=== PATIENT | female | born 1940 | race Caucasian/White ===

== ENCOUNTER 2022-11-24 09:53 | Inpatient (IN) ==
[2022-11-24] MEDS ORDERED: Iodixanol (CONTRAST) 320 MG/ML 100 ML SDV IV ONE (10:09)
[2022-11-24 10:20] LABS: ABS Lymphocytes 1.2 10^3/ul (1.0-4.8); ABS Monocytes 1.8 10^3/ul (0-0.8); ABS Neutrophils 16.9 10^3/ul (1.5-7.7); Hematocrit 39 % (35-47); Mean Corpuscular HGB Conc 33 g/dL (31-36); Mean Corpuscular Hemoglobin 35 pg (27-31); Mean Corpuscular Volume 106 fL (80-97); Mean Platelet Volume 9.4 fL (7.4-10.4); Platelet Count 179 10^3/uL (150-450); Red Blood Count 3.67 10^6 /uL (3.70-4.87); Red Cell Distribution Width 13 % (10-15); White Blood Count 19.9 10^3/uL (3.5-10.8)
[2022-11-24 10:28] LABS: Activated Partial Thrombo Time 34.1 seconds (26.0-38.0); INR 1.48 (0.88-1.18)
[2022-11-24 10:58] LABS: Albumin 3.6 g/dL (3.2-5.2); Albumin/Globulin Ratio 1.3 (1-3); Calcium 8.9 mg/dL (8.6-10.3); Globulin 2.8 g/dL (2-4); HDL Cholesterol 18.3 mg/dL; Potassium 4.2 mmol/L (3.5-5.0); Total Bilirubin 0.8 mg/dL (0.2-1.0); Total Protein 6.4 g/dL (6.4-8.9); eGFR CKD-EPI 37.7 (>60)
[2022-11-24] MEDS ORDERED: cefTRIAXone 1 gm/50 mL D5W 1 GM/50 ML BAG IV ONE (11:28)
[2022-11-24] MEDS ORDERED: Azithromycin 500 mg/250 ml NS 500 MG/250 ML BAG IVPB ONE (11:28)
[2022-11-24] MEDS ORDERED: Albuterol 2.5mg/3 ml (0.083%) NEB.SOLN INH PRN ×2 (12:38→16:35)
[2022-11-24] MEDS ORDERED: Albuterol/Ipratropium NEB.SOL (2.5/0.5 MG) 3 ML NEB.SOLN INH PRN (12:41)
[2022-11-24] MEDS ORDERED: Budesonide/Formote 80/4.5(NF) MDI INH SCH (13:00)
[2022-11-24] MEDS ORDERED: HYDROcodone/ACETAMIN 5/325 mg TAB PO PRN (13:01)
[2022-11-24 14:01] LABS: TSH Ultra Thyroid Stim Horm 0.56 mcIU/mL (0.34-5.60)
[2022-11-24] MEDS: Mometasone/Formoter 100/5 MDI INH SCH ×2 (14:39→22:46)
[2022-11-24 15:15] LABS: Urine Appearance Clear; Urine Color Yellow
[2022-11-24 15:16] LABS: Urine Bilirubin Negative (Negative); Urine Blood Negative (Negative); Urine Glucose Negative (Negative); Urine Ketones Trace (Negative); Urine Nitrite Negative (Negative); Urine Protein 1+ (30 mg/dL) (Negative); Urine Specific Gravity 1.015 (1.005-1.030); Urine Urobilinogen 0.2 (Negative) (Negative); Urine pH 5.5 (5.0-9.0)
[2022-11-24 15:23] LABS: High Sensitivity Troponin 1 Hr 296 pg/mL (<15)
[2022-11-24 15:29] LABS: Urine Bacteria Absent (Absent); Urine Red Blood Cell Absent (Absent); Urine Squamous Epithelial Cell Present (Absent); Urine White Blood Cell Trace(0-5/hpf) (Absent)
[2022-11-24] MEDS ORDERED: Albuterol/Ipratropium NEB.SOL (2.5/0.5 MG) 3 ML NEB.SOLN INH SCH (16:00)
[2022-11-24] MEDS: Nicotine PATCH 21 MG/24 HR PATCH TRANSDERM SCH (18:33)
[2022-11-24] MEDS: Heparin 5000 UNITS/ML 1 mL VIAL SUBCUT SCH (23:23)
[2022-11-25] MEDS: Latanoprost 0.005% 2.5 ml BTL BOTH EYES SCH ×2 (00:12→20:39)
[2022-11-25] MEDS: Dorzolamide/Timolol OPTH (NF) 10 ML BOT BOTH EYES SCH ×3 (00:12→20:39)
[2022-11-25 00:28] LABS: PCO2 Arterial 60 mmHg (35-45)
[2022-11-25 00:31] LABS: PO2 Arterial 53 mmHg (80-100)
[2022-11-25 03:25] LABS: PCO2 Arterial 57 mmHg (35-45); PO2 Arterial 183 mmHg (80-100)
[2022-11-25] MEDS: methylPREDNISolone SOD SUCC 125 mg 2 ML VIAL IV SCH ×3 (03:32→17:39)
[2022-11-25 04:07] LABS: ABS Lymphocytes 1.2 10^3/ul (1.0-4.8); ABS Monocytes 1.1 10^3/ul (0-0.8); ABS Neutrophils 15.8 10^3/ul (1.5-7.7); Hematocrit 34 % (35-47); Hemoglobin 11.1 g/dL (12.0-16.0); Lymphocyte % 6.5 %; Mean Corpuscular HGB Conc 33 g/dL (31-36); Mean Corpuscular Hemoglobin 34 pg (27-31); Mean Corpuscular Volume 103 fL (80-97); Mean Platelet Volume 9.4 fL (7.4-10.4); Platelet Count 174 10^3/uL (150-450); Red Blood Count 3.25 10^6 /uL (3.70-4.87); Red Cell Distribution Width 13 % (10-15); White Blood Count 18.1 10^3/uL (3.5-10.8)
[2022-11-25 04:25] LABS: Phosphorus 3.5 mg/dL (2.5-5.0); Potassium 4.5 mmol/L (3.5-5.0); eGFR CKD-EPI 47.3 (>60)
[2022-11-25] MEDS ORDERED: D5W 1000 ml BAG 1,000 ML IV SCH (05:00)
[2022-11-25] MEDS: Mometasone/Formoter 100/5 MDI INH SCH (07:30)
[2022-11-25] MEDS: Aspirin EC 81 mg TAB.EC (enteric coated) PO SCH (08:55)
[2022-11-25] MEDS: Nicotine PATCH 21 MG/24 HR PATCH TRANSDERM SCH (08:56)
[2022-11-25] MEDS: Heparin 5000 UNITS/ML 1 mL VIAL SUBCUT SCH ×2 (08:56→20:36)
[2022-11-25] MEDS ORDERED: Albuterol 2.5mg/3 ml (0.083%) NEB.SOLN INH PRN (12:23)
[2022-11-25] MEDS ORDERED: methylPREDNISolone SOD SUCC 125 mg 2 ML VIAL IV SCH (12:28)
[2022-11-25] MEDS: cefTRIAXone 1 gm/50 mL D5W 1 GM/50 ML BAG IV SCH (14:54)
[2022-11-26] MEDS: methylPREDNISolone SOD SUCC 125 mg 2 ML VIAL IV SCH ×2 (00:51→09:13)
[2022-11-26] MEDS: Mometasone/Formoter 100/5 MDI INH SCH ×2 (03:17→07:23)
[2022-11-26 04:47] LABS: ABS Lymphocytes 1.1 10^3/ul (1.0-4.8); ABS Monocytes 0.6 10^3/ul (0-0.8); ABS Neutrophils 12.2 10^3/ul (1.5-7.7); Hematocrit 36 % (35-47); Lymphocyte % 8.2 %; Mean Corpuscular HGB Conc 33 g/dL (31-36); Mean Corpuscular Hemoglobin 34 pg (27-31); Mean Corpuscular Volume 103 fL (80-97); Mean Platelet Volume 9.2 fL (7.4-10.4); Platelet Count 194 10^3/uL (150-450); Red Blood Count 3.53 10^6 /uL (3.70-4.87); Red Cell Distribution Width 13 % (10-15); White Blood Count 13.9 10^3/uL (3.5-10.8)
[2022-11-26 05:26] LABS: Calcium 8.5 mg/dL (8.6-10.3); Magnesium 2.2 mg/dL (1.9-2.7); Potassium 4.7 mmol/L (3.5-5.0); eGFR CKD-EPI 49.3 (>60)
[2022-11-26] MEDS: Aspirin EC 81 mg TAB.EC (enteric coated) PO SCH (09:12)
[2022-11-26] MEDS: Heparin 5000 UNITS/ML 1 mL VIAL SUBCUT SCH ×2 (09:13→22:50)
[2022-11-26] MEDS: Dorzolamide/Timolol OPTH (NF) 10 ML BOT BOTH EYES SCH ×2 (09:13→22:49)
[2022-11-26] MEDS: Nicotine PATCH 21 MG/24 HR PATCH TRANSDERM SCH (09:14)
[2022-11-26] MEDS: cefTRIAXone 1 gm/50 mL D5W 1 GM/50 ML BAG IV SCH (15:10)
[2022-11-26] MEDS ORDERED: methylPREDNISolone SOD SUCC 125 mg 2 ML VIAL IV SCH (21:00)
[2022-11-26] MEDS: Latanoprost 0.005% 2.5 ml BTL BOTH EYES SCH (22:48)
[2022-11-27] MEDS: Mometasone/Formoter 100/5 MDI INH SCH ×3 (00:35→19:21)
[2022-11-27] MEDS: Nicotine PATCH 21 MG/24 HR PATCH TRANSDERM SCH (08:44)
[2022-11-27] MEDS: Heparin 5000 UNITS/ML 1 mL VIAL SUBCUT SCH ×2 (08:44→21:50)
[2022-11-27] MEDS: Aspirin EC 81 mg TAB.EC (enteric coated) PO SCH (08:45)
[2022-11-27] MEDS: Dorzolamide/Timolol OPTH (NF) 10 ML BOT BOTH EYES SCH ×2 (08:46→22:04)
[2022-11-27] MEDS ORDERED: Albuterol 2.5mg/3 ml (0.083%) NEB.SOLN INH SCH (10:00)
[2022-11-27] MEDS: Albuterol 2.5mg/3 ml (0.083%) NEB.SOLN INH SCH ×3 (11:12→19:23)
[2022-11-27] MEDS: cefTRIAXone 1 gm/50 mL D5W 1 GM/50 ML BAG IV SCH (13:11)
[2022-11-27] MEDS: Latanoprost 0.005% 2.5 ml BTL BOTH EYES SCH (21:52)
[2022-11-28] MEDS: Albuterol 2.5mg/3 ml (0.083%) NEB.SOLN INH SCH ×3 (00:44→13:21)
[2022-11-28] MEDS: Mometasone/Formoter 100/5 MDI INH SCH (07:14)
[2022-11-28] MEDS: Nicotine PATCH 21 MG/24 HR PATCH TRANSDERM SCH (09:24)
[2022-11-28] MEDS: Aspirin EC 81 mg TAB.EC (enteric coated) PO SCH (09:24)
[2022-11-28] MEDS: Heparin 5000 UNITS/ML 1 mL VIAL SUBCUT SCH (09:25)
[2022-11-28] MEDS: Dorzolamide/Timolol OPTH (NF) 10 ML BOT BOTH EYES SCH (09:25)
[2022-11-28 16:32] VITALS: BP 181/96
== END 2022-11-28 17:10 | disposition home or self-care (01) | DRG 193 ==
LOC: EDHOLD 09:53 → ED 09:53 → SUATTDRO 12:28 → MEDTELE 22:00 → ICU 11-25 02:57 → SUATTDRO 11-26 08:56 → MED 11-26 20:04
PROVIDERS: ADMIT Internal Medicine; ATTEND Internal Medicine

== ENCOUNTER 2023-10-11 12:18 | Inpatient (IN) ==
[2023-10-11 12:48] LABS: ABS Basophils 0.1 10^3/uL (0.0-0.1); ABS Lymphocytes 0.9 10^3/uL (1.0-4.8); ABS Monocytes 0.8 10^3/uL (0.0-0.9); ABS Nucleated RBC 0.01 10^3/ul; Eosinophil % 0.2 %; Hematocrit 22.7 % (35-45); Hemoglobin 7.9 g/dL (11.5-14.3); Lymphocyte % 9.1 %; Mean Corpuscular Hemoglobin 33.1 pg (27-33); Mean Corpuscular Hgb Conc 34.8 g/dL (31-36); Mean Corpuscular Volume 94.9 fL (80-97); Mean Platelet Volume 9.3 fL (7.5-11.2); Nucleated Red Blood Cells % 0.1 %/100WBC (0.0-0.8); Platelet Count 232 10^3/uL (150-450); Red Blood Count 2.39 10^6/uL (3.63-4.92); Red Cell Distribution Width 14.2 % (12-17); White Blood Count 9.8 10^3/uL (3.8-11.8)
[2023-10-11 13:05] LABS: INR 1.12 (0.83-1.13)
[2023-10-11 13:17] LABS: Urine Appearance Clear; Urine Bilirubin Negative (Negative); Urine Blood Negative (Negative); Urine Color Yellow; Urine Glucose Negative (Negative); Urine Ketones Negative (Negative); Urine Nitrite Negative (Negative); Urine Protein Negative (Negative); Urine Specific Gravity 1.008 (1.002-1.030); Urine Urobilinogen Negative (Negative)
[2023-10-11] MEDS ORDERED: NS 0.9% 1000 ml BAG 1,000 ML IV ONE ×2 (13:20→14:59)
[2023-10-11 13:38] LABS: Urine Bacteria Absent (Absent); Urine Red Blood Cell Trace(0-2/hpf) (Absent); Urine White Blood Cell 1+(6-10/hpf) (Absent)
[2023-10-11 14:09] LABS: High Sensitivity Troponin 1 Hr 10 pg/mL (<15)
[2023-10-11 14:17] LABS: Albumin 3.6 g/dL (3.2-5.2); Albumin/Globulin Ratio 1.3 (1-3); Calcium 8.6 mg/dL (8.6-10.3); Creatinine, Serum 1.17 mg/dL (0.51-0.95); Globulin 2.7 g/dL (2-4); Potassium 3.8 mmol/L (3.5-5.0); Total Bilirubin 0.3 mg/dL (0.2-1.0); Total Protein 6.3 g/dL (6.4-8.9)
[2023-10-11 14:31] LABS: Alcohol, S < 13 mg/dL (<13)
[2023-10-11 14:37] LABS: Activated Partial Thrombo Time 27.8 seconds (26.0-38.0)
[2023-10-11] MEDS ORDERED: Acetaminophen IV 1 GM/100ML 1,000 MG/100 ML BAG IV ONE (14:59)
[2023-10-11] MEDS ORDERED: Atropine 0.1 MG/ML 10 ml SYR (1 mg) IV PUSH ONE (15:42)
[2023-10-11] MEDS ORDERED: fentaNYL 100 mcg/2 ml 50 MCG/ML VIAL IV SLOW PU ONE (15:55)
[2023-10-11] MEDS ORDERED: Midazolam 10 mg/10 ml VIAL 1 mg/ml 10 ml VIAL (10 mg) IV SLOW PU ONE (15:55)
[2023-10-11] MEDS ORDERED: Ondansetron 4 mg VIAL 2 MG/ML 2 ml VIAL IV PRN (17:01)
[2023-10-11] MEDS ORDERED: Iodixanol (CONTRAST) 320 MG/ML 100 ML SDV IV ONE (17:12)
[2023-10-11] MEDS ORDERED: Albuterol 2.5mg/3 ml (0.083%) NEB.SOLN INH PRN (17:44)
[2023-10-11] MEDS ORDERED: Dextran 70/Hypromellose Tears Eye Drops 15 ml BTL (for Artificials Tears) BOTH EYES PRN (17:47)
[2023-10-11] MEDS: Mometasone/Formoter 100/5 MDI INH SCH (20:35)
[2023-10-11] MEDS: Nicotine PATCH 7 MG/24 HR PATCH TRANSDERM SCH (21:28)
[2023-10-11] MEDS: Pantoprazole VIAL 40 MG VIAL IV SCH (21:28)
[2023-10-11] MEDS: Latanoprost 0.005% 2.5 ml BTL BOTH EYES SCH (21:29)
[2023-10-11 23:29] LABS: ABS Basophils 0.1 10^3/uL (0.0-0.1); ABS Lymphocytes 0.9 10^3/uL (1.0-4.8); ABS Neutrophils 7.3 10^3/uL (1.5-7.6); ABS Nucleated RBC 0.01 10^3/ul; Eosinophil % 0.3 %; Hematocrit 26.7 % (35-45); Hemoglobin 9.1 g/dL (11.5-14.3); Lymphocyte % 9.8 %; Mean Corpuscular Hemoglobin 31.6 pg (27-33); Mean Platelet Volume 9.1 fL (7.5-11.2); Nucleated Red Blood Cells % 0.1 %/100WBC (0.0-0.8); Platelet Count 203 10^3/uL (150-450); Red Blood Count 2.87 10^6/uL (3.63-4.92); Red Cell Distribution Width 14.7 % (12-17); White Blood Count 9.3 10^3/uL (3.8-11.8)
[2023-10-12 04:58] LABS: ABS Basophils 0.1 10^3/uL (0.0-0.1); ABS Lymphocytes 0.8 10^3/uL (1.0-4.8); ABS Monocytes 0.7 10^3/uL (0.0-0.9); ABS Neutrophils 7.8 10^3/uL (1.5-7.6); ABS Nucleated RBC 0.01 10^3/ul; Eosinophil % 0.2 %; Hematocrit 27.3 % (35-45); Hemoglobin 9.2 g/dL (11.5-14.3); Lymphocyte % 8.4 %; Mean Corpuscular Hemoglobin 31.5 pg (27-33); Mean Corpuscular Hgb Conc 33.7 g/dL (31-36); Mean Corpuscular Volume 93.6 fL (80-97); Mean Platelet Volume 8.8 fL (7.5-11.2); Nucleated Red Blood Cells % 0.1 %/100WBC (0.0-0.8); Platelet Count 190 10^3/uL (150-450); Red Blood Count 2.91 10^6/uL (3.63-4.92); Red Cell Distribution Width 15.1 % (12-17); White Blood Count 9.4 10^3/uL (3.8-11.8)
[2023-10-12 05:23] LABS: Calcium 7.8 mg/dL (8.6-10.3); Creatinine, Serum 0.92 mg/dL (0.51-0.95); Magnesium 1.8 mg/dL (1.9-2.7); Phosphorus 2.6 mg/dL (2.5-5.0); Potassium 3.8 mmol/L (3.5-5.0); eGFR CKD-EPI 61.4 (>60)
[2023-10-12] MEDS ORDERED: Potassium Chlor 20 meq TAB.ER PO ONE (06:58)
[2023-10-12] MEDS ORDERED: Magnesium Sulfate 2 gm BAG 2 GM/50 ML BAG IVPB ONE (06:59)
[2023-10-12] MEDS: Nicotine PATCH 7 MG/24 HR PATCH TRANSDERM SCH (07:45)
[2023-10-12] MEDS: Cholecalciferol (VIT D3) 1,000 unit TAB PO SCH (07:46)
[2023-10-12] MEDS: NON FORMULARY MED (Zinc Acetate 50 mg (zinc) Capsule) PO SCH (07:46)
[2023-10-12] MEDS: HYDROcodone/ACETAMIN 5/325 mg TAB PO PRN ×2 (07:46→20:48)
[2023-10-12] MEDS: Mometasone/Formoter 100/5 MDI INH SCH ×2 (08:02→19:03)
[2023-10-12] MEDS: Pantoprazole VIAL 40 MG VIAL IV SCH (17:48)
[2023-10-12] MEDS: Latanoprost 0.005% 2.5 ml BTL BOTH EYES SCH (20:52)
[2023-10-13 04:38] LABS: Hematocrit 31.7 % (35-45); Hemoglobin 10.5 g/dL (11.5-14.3); Mean Corpuscular Hemoglobin 31.1 pg (27-33); Mean Corpuscular Volume 94.3 fL (80-97); Mean Platelet Volume 9.4 fL (7.5-11.2); Platelet Count 229 10^3/uL (150-450); Red Blood Count 3.36 10^6/uL (3.63-4.92); Red Cell Distribution Width 15.2 % (12-17); White Blood Count 9.6 10^3/uL (3.8-11.8)
[2023-10-13 05:04] LABS: Calcium 8.8 mg/dL (8.6-10.3); Creatinine, Serum 0.92 mg/dL (0.51-0.95); Potassium 4.4 mmol/L (3.5-5.0); eGFR CKD-EPI 61.4 (>60)
[2023-10-13] MEDS: HYDROcodone/ACETAMIN 5/325 mg TAB PO PRN ×2 (05:56→14:48)
[2023-10-13] MEDS: Mometasone/Formoter 100/5 MDI INH SCH ×2 (07:58→19:48)
[2023-10-13] MEDS: Cholecalciferol (VIT D3) 1,000 unit TAB PO SCH (08:44)
[2023-10-13] MEDS: NON FORMULARY MED (Zinc Acetate 50 mg (zinc) Capsule) PO SCH (10:03)
[2023-10-13] MEDS: Nicotine PATCH 7 MG/24 HR PATCH TRANSDERM SCH (10:19)
[2023-10-13] MEDS: Pantoprazole VIAL 40 MG VIAL IV SCH (18:06)
[2023-10-13] MEDS: Latanoprost 0.005% 2.5 ml BTL BOTH EYES SCH (20:42)
[2023-10-14] MEDS ORDERED: Morphine 2 MG/ML SYRINGE IV ONE (05:04)
[2023-10-14 05:20] LABS: ABS Basophils 0.1 10^3/uL (0.0-0.1); ABS Eosinophils 0.1 10^3/uL (0.0-0.5); ABS Lymphocytes 0.9 10^3/uL (1.0-4.8); ABS Monocytes 0.8 10^3/uL (0.0-0.9); ABS Neutrophils 8.3 10^3/uL (1.5-7.6); Hematocrit 29.4 % (35-45); Hemoglobin 9.7 g/dL (11.5-14.3); Lymphocyte % 8.9 %; Mean Corpuscular Hemoglobin 31.1 pg (27-33); Mean Corpuscular Hgb Conc 33.1 g/dL (31-36); Mean Platelet Volume 8.6 fL (7.5-11.2); Platelet Count 232 10^3/uL (150-450); Red Blood Count 3.13 10^6/uL (3.63-4.92); Red Cell Distribution Width 14.6 % (12-17); White Blood Count 10.1 10^3/uL (3.8-11.8)
[2023-10-14 06:00] LABS: Albumin 3.3 g/dL (3.2-5.2); Albumin/Globulin Ratio 1.2 (1-3); Calcium 8.8 mg/dL (8.6-10.3); Creatinine, Serum 0.91 mg/dL (0.51-0.95); Globulin 2.7 g/dL (2-4); Magnesium 1.7 mg/dL (1.9-2.7); Phosphorus 3.8 mg/dL (2.5-5.0); Potassium 4.2 mmol/L (3.5-5.0); Total Bilirubin 0.3 mg/dL (0.2-1.0); eGFR CKD-EPI 62.2 (>60)
[2023-10-14] MEDS ORDERED: Magnesium Sulfate 2 gm BAG 2 GM/50 ML BAG IVPB ONE (06:06)
[2023-10-14] MEDS: Mometasone/Formoter 100/5 MDI INH SCH ×2 (07:59→19:51)
[2023-10-14] MEDS ORDERED: fentaNYL 100 mcg/2 ml 50 MCG/ML VIAL IV SLOW PU ONE (08:00)
[2023-10-14] MEDS ORDERED: Midazolam 10 mg/10 ml VIAL 1 mg/ml 10 ml VIAL (10 mg) IV SLOW PU ONE (08:00)
[2023-10-14] MEDS ORDERED: ceFAZolin SYR FLUSH 1 GM/10 ML for pocket flush (cardiology) FLUSH ONE (08:00)
[2023-10-14] MEDS ORDERED: Lidocaine 1% VIAL 10 MG/ML 30 ML VIAL ONE (10:34)
[2023-10-14] MEDS ORDERED: fentaNYL 100 mcg/2 ml 50 MCG/ML VIAL ONE (10:34)
[2023-10-14] MEDS ORDERED: Midazolam 5 mg/5 ml VIAL 1 mg/ml 5 ml VIAL (5 mg) ONE (10:34)
[2023-10-14] MEDS: ceFAZolin 2 GM in NS PREMIX 2 GM/100 ML BAG IVPB ONE ×2 (10:53→11:58)
[2023-10-14 11:19] LABS: Ferritin 10.1 ng/mL (11-307)
[2023-10-14 11:39] LABS: % Iron Saturation 6 % (15-55); .Transferrin 250 mg/dL (203-362); Iron < 20 ug/dL (50-212); Total Iron Binding Capacity 350 mcg/dL (250-450); Unsaturated Iron Binding 330 ug/dL
[2023-10-14] MEDS ORDERED: Metoprolol Tartrate 5 mg VIAL 5 ml VIAL (1 mg/ml) ONE (11:40)
[2023-10-14] MEDS: NON FORMULARY MED (Zinc Acetate 50 mg (zinc) Capsule) PO SCH (11:56)
[2023-10-14] MEDS: Nicotine PATCH 7 MG/24 HR PATCH TRANSDERM SCH (13:03)
[2023-10-14] MEDS: Cholecalciferol (VIT D3) 1,000 unit TAB PO SCH (13:03)
[2023-10-14] MEDS: ceFAZolin VIAL 1 GM in NS 0.9% 50 ML 50 ML IVPB SCH (18:14)
[2023-10-14] MEDS: Pantoprazole VIAL 40 MG VIAL IV SCH (18:18)
[2023-10-14] MEDS: Latanoprost 0.005% 2.5 ml BTL BOTH EYES SCH (20:39)
[2023-10-14] MEDS: Dorzolamide/Timolol OPTH (NF) 10 ML BOT BOTH EYES SCH (20:39)
[2023-10-14] MEDS: HYDROcodone/ACETAMIN 5/325 mg TAB PO PRN (22:05)
[2023-10-15] MEDS: ceFAZolin VIAL 1 GM in NS 0.9% 50 ML 50 ML IVPB SCH ×2 (01:42→11:53)
[2023-10-15 05:02] LABS: Hemoglobin 9.4 g/dL (11.5-14.3); Mean Corpuscular Hemoglobin 31.5 pg (27-33); Mean Corpuscular Hgb Conc 33.7 g/dL (31-36); Mean Corpuscular Volume 93.5 fL (80-97); Mean Platelet Volume 8.9 fL (7.5-11.2); Platelet Count 214 10^3/uL (150-450); Red Cell Distribution Width 14.6 % (12-17); White Blood Count 10.4 10^3/uL (3.8-11.8)
[2023-10-15 05:42] LABS: Calcium 8.4 mg/dL (8.6-10.3); Creatinine, Serum 1.02 mg/dL (0.51-0.95); Potassium 4.2 mmol/L (3.5-5.0); eGFR CKD-EPI 54.2 (>60)
[2023-10-15] MEDS: Mometasone/Formoter 100/5 MDI INH SCH ×2 (07:42→19:29)
[2023-10-15] MEDS: Cholecalciferol (VIT D3) 1,000 unit TAB PO SCH (09:40)
[2023-10-15] MEDS: Dorzolamide/Timolol OPTH (NF) 10 ML BOT BOTH EYES SCH ×3 (09:41→19:27)
[2023-10-15] MEDS ORDERED: Midazolam 10 mg/10 ml VIAL 1 mg/ml 10 ml VIAL (10 mg) ONE (09:53)
[2023-10-15] MEDS ORDERED: fentaNYL 100 mcg/2 ml 50 MCG/ML VIAL ONE (09:53)
[2023-10-15] MEDS: Nicotine PATCH 7 MG/24 HR PATCH TRANSDERM SCH (10:25)
[2023-10-15] MEDS: NON FORMULARY MED (Zinc Acetate 50 mg (zinc) Capsule) PO SCH (11:37)
[2023-10-15] MEDS ORDERED: Acetaminophen IV 1 GM/100ML 1,000 MG/100 ML BAG IV ONE (11:40)
[2023-10-15] MEDS ORDERED: Acetaminophen IV 1 GM/100ML 0 MG/0 ML BAG IV ONE (11:45)
[2023-10-15] MEDS: HYDROcodone/ACETAMIN 5/325 mg TAB PO PRN ×2 (11:56→19:58)
[2023-10-15] MEDS: Pantoprazole VIAL 40 MG VIAL IV SCH (19:58)
[2023-10-15] MEDS: Latanoprost 0.005% 2.5 ml BTL BOTH EYES SCH (19:59)
[2023-10-16] MEDS ORDERED: Acetaminophen IV 1 GM/100ML 1,000 MG/100 ML BAG IV ONE ×2 (05:20→08:20)
[2023-10-16 05:51] LABS: Calcium 8.6 mg/dL (8.6-10.3); Creatinine, Serum 0.78 mg/dL (0.51-0.95); Magnesium 1.8 mg/dL (1.9-2.7); Potassium 4.2 mmol/L (3.5-5.0); eGFR CKD-EPI 74.8 (>60)
[2023-10-16] MEDS ORDERED: Magnesium Sulfate IV 1GM/100ML 1 GM/100 ML BAG IV ONE (06:34)
[2023-10-16] MEDS ORDERED: Magnesium Sulfate 2 gm BAG 2 GM/50 ML BAG IVPB ONE (07:46)
[2023-10-16] MEDS: Mometasone/Formoter 100/5 MDI INH SCH ×2 (08:06→19:49)
[2023-10-16] MEDS ORDERED: fentaNYL 100 mcg/2 ml 50 MCG/ML VIAL ONE (08:41)
[2023-10-16] MEDS ORDERED: VERAPAMIL 2.5 MG/ML 2 ML VIAL ** 5 mg/2 ml ONE (08:41)
[2023-10-16] MEDS ORDERED: Heparin 1,000 UNIT/ML 10 ml (10,000 UNITS) CATHLAB/DIALYSIS ONE (08:41)
[2023-10-16] MEDS ORDERED: Midazolam 5 mg/5 ml VIAL 1 mg/ml 5 ml VIAL (5 mg) ONE (08:41)
[2023-10-16] MEDS ORDERED: Heparin 2 UNITS/ML 1000 mls 2,000 ML IV ONE (08:42)
[2023-10-16] MEDS ORDERED: Lidocaine 1% MPF 5 ML VIAL ONE (08:42)
[2023-10-16] MEDS ORDERED: Iohexol 350 (CONTRAST) 200 ML MDV IV ONE (08:42)
[2023-10-16] MEDS ORDERED: Iohexol 350 (CONTRAST) 100 ML PAK IV ONE (08:43)
[2023-10-16] MEDS ORDERED: nitroGLYCERIN DRIP (PHA MIX) 25,000 MCG/250 ML BAG ONE (08:44)
[2023-10-16] MEDS ORDERED: Pantoprazole VIAL 40 MG VIAL IV SCH (09:00)
[2023-10-16] MEDS ORDERED: NS 0.9% 1000 ml BAG 1,000 ML IV SCH (10:15)
[2023-10-16] MEDS: Cholecalciferol (VIT D3) 1,000 unit TAB PO SCH (12:45)
[2023-10-16] MEDS: NON FORMULARY MED (Zinc Acetate 50 mg (zinc) Capsule) PO SCH (12:45)
[2023-10-16] MEDS: Dorzolamide/Timolol OPTH (NF) 10 ML BOT BOTH EYES SCH (12:46)
[2023-10-16] MEDS: Polyethylene Glycol 3350 17 GM PACKET PO SCH (13:05)
[2023-10-16] MEDS: Nicotine PATCH 7 MG/24 HR PATCH TRANSDERM SCH (13:05)
[2023-10-16] MEDS: Iron Sucrose 200 MG in NS 0.9% 100 ml BAG 100 ML IVPB SCH (15:34)
[2023-10-16] MEDS: HYDROcodone/ACETAMIN 5/325 mg TAB PO PRN (22:24)
[2023-10-16] MEDS: Latanoprost 0.005% 2.5 ml BTL BOTH EYES SCH (22:32)
[2023-10-16] MEDS ORDERED: Furosemide 20 mg/2 ml IV VIAL IV SLOW PU ONE (23:20)
[2023-10-17 06:19] LABS: Hematocrit 27.6 % (35-45); Hemoglobin 9.3 g/dL (11.5-14.3); Mean Corpuscular Hemoglobin 31.5 pg (27-33); Mean Corpuscular Hgb Conc 33.8 g/dL (31-36); Mean Corpuscular Volume 93.1 fL (80-97); Mean Platelet Volume 9.3 fL (7.5-11.2); Platelet Count 216 10^3/uL (150-450); Red Blood Count 2.96 10^6/uL (3.63-4.92); Red Cell Distribution Width 14.4 % (12-17)
[2023-10-17 06:39] LABS: Calcium 8.8 mg/dL (8.6-10.3); Creatinine, Serum 0.77 mg/dL (0.51-0.95); Magnesium 2.2 mg/dL (1.9-2.7); Potassium 4.4 mmol/L (3.5-5.0)
[2023-10-17] MEDS: Mometasone/Formoter 100/5 MDI INH SCH ×2 (08:09→21:10)
[2023-10-17] MEDS: NON FORMULARY MED (Zinc Acetate 50 mg (zinc) Capsule) PO SCH (08:31)
[2023-10-17] MEDS: Nicotine PATCH 7 MG/24 HR PATCH TRANSDERM SCH (08:45)
[2023-10-17] MEDS: Iron Sucrose 200 MG in NS 0.9% 100 ml BAG 100 ML IVPB SCH (08:47)
[2023-10-17] MEDS: Cholecalciferol (VIT D3) 1,000 unit TAB PO SCH (08:47)
[2023-10-17] MEDS: Polyethylene Glycol 3350 17 GM PACKET PO SCH (08:47)
[2023-10-17] MEDS ORDERED: Furosemide 20 mg/2 ml IV VIAL IV ONE (15:53)
[2023-10-17] MEDS: HYDROcodone/ACETAMIN 5/325 mg TAB PO PRN (21:38)
[2023-10-17] MEDS: Latanoprost 0.005% 2.5 ml BTL BOTH EYES SCH (21:38)
[2023-10-18 07:07] LABS: Calcium 8.9 mg/dL (8.6-10.3); Creatinine, Serum 0.97 mg/dL (0.51-0.95); Potassium 4.4 mmol/L (3.5-5.0); eGFR CKD-EPI 57.6 (>60)
[2023-10-18] MEDS: Mometasone/Formoter 100/5 MDI INH SCH ×2 (07:27→19:51)
[2023-10-18] MEDS: Iron Sucrose 200 MG in NS 0.9% 100 ml BAG 100 ML IVPB SCH (08:59)
[2023-10-18] MEDS: Polyethylene Glycol 3350 17 GM PACKET PO SCH (09:00)
[2023-10-18] MEDS: Nicotine PATCH 7 MG/24 HR PATCH TRANSDERM SCH (09:00)
[2023-10-18] MEDS: Cholecalciferol (VIT D3) 1,000 unit TAB PO SCH (09:01)
[2023-10-18] MEDS: NON FORMULARY MED (Zinc Acetate 50 mg (zinc) Capsule) PO SCH (09:06)
[2023-10-18 09:39] LABS: Hematocrit 28.6 % (35-45); Hemoglobin 9.4 g/dL (11.5-14.3); Mean Corpuscular Hemoglobin 30.6 pg (27-33); Mean Corpuscular Hgb Conc 32.8 g/dL (31-36); Mean Corpuscular Volume 93.3 fL (80-97); Mean Platelet Volume 8.9 fL (7.5-11.2); Platelet Count 231 10^3/uL (150-450); Red Blood Count 3.07 10^6/uL (3.63-4.92); Red Cell Distribution Width 14.5 % (12-17); White Blood Count 10.6 10^3/uL (3.8-11.8)
[2023-10-18 17:42] VITALS: BP 126/58
== END 2023-10-18 19:20 | disposition home or self-care (01) | DRG 244 ==
LOC: ED 12:18 → SUATTDRO 17:01 → EDHOLD 17:01 → ICU 20:12 → MEDTELE 10-16 08:05
PROVIDERS: ADMIT Internal Medicine Pulmonary Disease; ATTEND Hospitalist

== ENCOUNTER 2024-04-02 13:02 | Observation (INO) ==
[2024-04-02 14:20] LABS: ABS Basophils 0.1 10^3/uL (0.0-0.1); ABS Eosinophils 0.2 10^3/uL (0.0-0.5); ABS Lymphocytes 1.5 10^3/uL (1.0-4.8); ABS Monocytes 0.7 10^3/uL (0.0-0.9); ABS Neutrophils 6.5 10^3/uL (1.5-7.6); Eosinophil % 2.1 %; Hematocrit 33.4 % (35-45); Hemoglobin 10.7 g/dL (11.5-14.3); Lymphocyte % 16.4 %; Mean Corpuscular Hemoglobin 28.4 pg (27-33); Mean Corpuscular Volume 88.8 fL (80-97); Mean Platelet Volume 9.1 fL (7.5-11.2); Platelet Count 218 10^3/uL (150-450); Red Blood Count 3.77 10^6/uL (3.63-4.92); Red Cell Distribution Width 15.1 % (12-17); White Blood Count 8.9 10^3/uL (3.8-11.8)
[2024-04-02 14:27] LABS: INR 1.15 (0.83-1.13)
[2024-04-02 15:12] LABS: Albumin 4.1 g/dL (3.2-5.2); Albumin/Globulin Ratio 1.4 (1-3); Calcium 9.3 mg/dL (8.6-10.3); Creatinine, Serum 1.12 mg/dL (0.51-0.95); Potassium 4.4 mmol/L (3.5-5.0); Total Bilirubin 0.3 mg/dL (0.2-1.0); Total Protein 7.1 g/dL (6.4-8.9); eGFR CKD-EPI 48.5 (>60)
[2024-04-02] MEDS: CMCS:Dorzolamide/Timolol OPTH (NF) 10 ML BOT BOTH EYES SCH (20:56)
[2024-04-02] MEDS: Latanoprost 0.005% 2.5 ml BTL BOTH EYES SCH (20:56)
[2024-04-02] MEDS ORDERED: Albuterol HFA INHALER 8 gm MDI INH PRN (22:11)
[2024-04-02] MEDS: Enoxaparin 40 MG/0.4 ML SYR SUBCUT SCH (22:12)
[2024-04-02] MEDS ORDERED: Polyethylene Glycol 3350 17 GM PACKET PO PRN (22:15)
[2024-04-02] MEDS ORDERED: Senna TAB 8.6 mg TAB PO PRN (22:15)
[2024-04-03 06:40] LABS: ABS Basophils 0.1 10^3/uL (0.0-0.1); ABS Eosinophils 0.2 10^3/uL (0.0-0.5); ABS Lymphocytes 1.4 10^3/uL (1.0-4.8); ABS Monocytes 0.7 10^3/uL (0.0-0.9); ABS Neutrophils 4.4 10^3/uL (1.5-7.6); Eosinophil % 2.4 %; Hematocrit 30.7 % (35-45); Lymphocyte % 21.2 %; Mean Corpuscular Hemoglobin 28.3 pg (27-33); Mean Corpuscular Hgb Conc 32.5 g/dL (31-36); Mean Corpuscular Volume 86.9 fL (80-97); Mean Platelet Volume 8.9 fL (7.5-11.2); Nucleated Red Blood Cells % 0.1 %/100WBC (0.0-0.8); Platelet Count 184 10^3/uL (150-450); Red Blood Count 3.54 10^6/uL (3.63-4.92); Red Cell Distribution Width 14.9 % (12-17); White Blood Count 6.7 10^3/uL (3.8-11.8)
[2024-04-03 07:09] LABS: Calcium 9.1 mg/dL (8.6-10.3); Creatinine, Serum 0.95 mg/dL (0.51-0.95); Potassium 4.4 mmol/L (3.5-5.0); eGFR CKD-EPI 59.1 (>60)
[2024-04-03] MEDS: Cholecalciferol (VIT D3) 1,000 unit TAB PO SCH (07:46)
[2024-04-03] MEDS: Mometasone/Formoter 100/5 MDI INH SCH (09:15)
[2024-04-03 14:01] VITALS: BP 139/56
== END 2024-04-03 16:15 | disposition home or self-care (01) ==
LOC: EDHOLD 13:02 → ED 13:02 → SUATTDRO 16:38 → MEDTELE 18:12
PROVIDERS: ADMIT Internal Medicine; ATTEND Student in an Organized Health Care Education/Training Program